=== PATIENT | female | born 1985 | race Caucasian/White ===

== ENCOUNTER 2022-03-26 07:07 | Emergency (ER) | payer BC ==
[2022-03-26] MEDS ORDERED: SODIUM CHLORIDE 1,000 ML IV STA ×2 (07:23→11:26)
[2022-03-26] MEDS ORDERED: ACETAMINOPHEN 1000 MG/100 ML BAG IVPB ONE (07:23)
[2022-03-26] MEDS ORDERED: ONDANSETRON 4 MG/2 ML VIAL IVPUSH ONE ×2 (07:28→11:25)
[2022-03-26 07:46] VITALS: TEMP 97.8; BMI 30.2
[2022-03-26 07:56] LABS: BASO % 0.3 % (0-2.0); EOS % 0.4 % (0-4.5); HEMATOCRIT 34.6 % (32.4-45.2); HEMOGLOBIN 11.5 GM/dL (10.7-15.3); LYMPH % 15.2 % (8-40); MCH 25.4 pg (25.7-33.7); MCHC 33.2 g/dl (32.0-36.0); MEAN CELL VOLUME 76.4 fl (80-96); MEAN PLT VOLUME 8.6 fl (7.5-11.1); MONO % 5.2 % (3.8-10.2); NEUT % 78.9 % (42.8-82.8); PLATELET COUNT 267 10^3/uL (134-434); RBC 4.53 M/mm3 (3.60-5.2); RDW 13.6 % (11.6-15.6); WHITE BLOOD COUNT 13.1 K/mm3 (4.0-10.0)
[2022-03-26 08:09] LABS: CALCIUM 8.5 mg/dL (8.5-10.1)
[2022-03-26 08:10] LABS: ALBUMIN 3.4 g/dl (3.4-5.0); BLOOD UREA NITROGEN 7.7 mg/dL (7-18)
[2022-03-26 08:13] LABS: CREATININE 0.5 mg/dL (0.55-1.3)
[2022-03-26 08:14] LABS: TOT PROT 6.8 g/dl (6.4-8.2)
[2022-03-26 08:15] LABS: BILIRUBIN,TOTAL 0.5 mg/dL (0.2-1)
[2022-03-26 08:35] LABS: PH,URINE >= 9.0 (5.0-8.0); URINE APPEARANCE CLEAR; URINE BILIRUBIN NEGATIVE (NEGATIVE); URINE COLOR YELLOW; URINE GLUCOSE (UA) NEGATIVE (NEGATIVE); URINE KETONE NEGATIVE (NEGATIVE); URINE LEUK ESTERASE NEGATIVE (NEGATIVE); URINE NITRITE NEGATIVE (NEGATIVE); URINE PROTEIN NEGATIVE (NEGATIVE)
[2022-03-26] MEDS ORDERED: FAMOTIDINE 20 MG/50 ML IVPB 20 MG/50 ML MG IVPB ONE (11:25)
[2022-03-26] MEDS ORDERED: ONDANSETRON 4 MG/2 ML VIAL ONE (12:07)
[2022-03-26] MEDS ORDERED: FAMOTIDINE 10 MG/ML VIAL IVPB ONE (12:07)
[2022-03-26] MEDS ORDERED: KETOROLAC TROMETHAMINE 30 MG/1 ML VIAL IVPUSH ONE (13:01)
[2022-03-26] MEDS ORDERED: KETOROLAC TROMETHAMINE 30 MG/1 ML VIAL ONE (13:20)
[2022-03-26 14:31] VITALS: BP 116/80; PULSE 84
== END 2022-03-26 14:31 | disposition home or self-care (01) ==
LOC: JER 07:07
PROC: 3E033GC Introduction of Other Therapeutic Substance into Peripheral Vein, Percutaneous Approach (ICD-10-PCS; principal; 2022-03-26)
DX: R10.30 Lower abdominal pain, unspecified (principal)
CPT/HCPCS: 36415; 74177-TC; 76830-TC; 80053; 81003; 83690; 84703; 85025; 87086; 87491; 87591; 99285-25; Q9967

== ENCOUNTER 2022-03-28 02:33 | Observation (INO) | payer BC ==
[2022-03-28] MEDS ORDERED: ONDANSETRON 4 MG/2 ML VIAL IVPUSH ONE (03:38)
[2022-03-28] MEDS ORDERED: SODIUM CHLORIDE 0.9% 500 ML INFUS.BAG IV ONE (03:39)
[2022-03-28] MEDS ORDERED: ONDANSETRON 4 MG/2 ML VIAL ONE (03:42)
[2022-03-28] MEDS ORDERED: ACETAMINOPHEN 1000 MG/100 ML BAG IVPB ONE (03:58)
[2022-03-28] MEDS ORDERED: ACETAMINOPHEN INJECTION 100 ML IVPB ONE (04:02)
[2022-03-28 04:08] LABS: BASO % 0.2 % (0-2.0); EOS % 0.2 % (0-4.5); HEMATOCRIT 32.3 % (32.4-45.2); HEMOGLOBIN 10.8 GM/dL (10.7-15.3); LYMPH % 6.3 % (8-40); MCH 25.6 pg (25.7-33.7); MCHC 33.4 g/dl (32.0-36.0); MEAN CELL VOLUME 76.6 fl (80-96); MEAN PLT VOLUME 8.2 fl (7.5-11.1); MONO % 4.2 % (3.8-10.2); NEUT % 89.1 % (42.8-82.8); PLATELET COUNT 249 10^3/uL (134-434); RBC 4.22 M/mm3 (3.60-5.2); RDW 13.9 % (11.6-15.6); WHITE BLOOD COUNT 17.2 K/mm3 (4.0-10.0)
[2022-03-28 04:29] LABS: CALCIUM 8.3 mg/dL (8.5-10.1)
[2022-03-28 04:30] LABS: ALBUMIN 2.9 g/dl (3.4-5.0); BLOOD UREA NITROGEN 7.7 mg/dL (7-18)
[2022-03-28 04:33] LABS: CREATININE 0.5 mg/dL (0.55-1.3)
[2022-03-28 04:34] LABS: TOT PROT 6.1 g/dl (6.4-8.2)
[2022-03-28 04:35] LABS: BILIRUBIN,TOTAL 0.5 mg/dL (0.2-1)
[2022-03-28] MEDS: SODIUM CHLORIDE 1,000 ML IV SCH ×2 (09:25→17:47)
[2022-03-28] MEDS: ACETAMINOPHEN 1000 MG/100 ML BAG IVPB PRN ×2 (13:42→21:47)
[2022-03-28 14:12] LABS: PH,URINE 6.5 (5.0-8.0); URINE APPEARANCE CLEAR; URINE BILIRUBIN 1+ (NEGATIVE); URINE COLOR DK YELLOW; URINE GLUCOSE (UA) NEGATIVE (NEGATIVE); URINE KETONE TRACE (NEGATIVE); URINE LEUK ESTERASE NEGATIVE (NEGATIVE); URINE NITRITE NEGATIVE (NEGATIVE); URINE PROTEIN NEGATIVE (NEGATIVE)
[2022-03-28] MEDS: ONDANSETRON 4 MG/2 ML VIAL IVPUSH PRN (16:32)
[2022-03-28 17:46] VITALS: BMI 31.1
[2022-03-29] MEDS: ONDANSETRON 4 MG/2 ML VIAL IVPUSH PRN (01:03)
[2022-03-29] MEDS: SODIUM CHLORIDE 1,000 ML IV SCH ×3 (01:38→17:21)
[2022-03-29] MEDS ORDERED: BISMUTH SUBSALICYLATE 262 MG/15 ML BTL PO ONE ×2 (04:13→17:30)
[2022-03-29] MEDS: ACETAMINOPHEN 1000 MG/100 ML BAG IVPB PRN ×2 (05:47→18:44)
[2022-03-29 08:43] LABS: BASO % 0.1 % (0-2.0); EOS % 1.3 % (0-4.5); HEMATOCRIT 27.8 % (32.4-45.2); HEMOGLOBIN 9.5 GM/dL (10.7-15.3); MCH 25.9 pg (25.7-33.7); MEAN PLT VOLUME 8.6 fl (7.5-11.1); MONO % 10.1 % (3.8-10.2); NEUT % 70.5 % (42.8-82.8); PLATELET COUNT 242 10^3/uL (134-434); RBC 3.65 M/mm3 (3.60-5.2); WHITE BLOOD COUNT 7.9 K/mm3 (4.0-10.0)
[2022-03-29 08:50] LABS: ALBUMIN 2.4 g/dl (3.4-5.0); BLOOD UREA NITROGEN 7.5 mg/dL (7-18); CALCIUM 7.8 mg/dL (8.5-10.1)
[2022-03-29 08:53] LABS: CREATININE 0.3 mg/dL (0.55-1.3); PHOSPHOROUS 2.9 mg/dL (2.5-4.9)
[2022-03-29 08:55] LABS: BILIRUBIN,TOTAL 0.5 mg/dL (0.2-1); TOT PROT 5.3 g/dl (6.4-8.2)
[2022-03-29] MEDS: PROCHLORPERAZINE MALEATE 5 MG TABLET PO PRN (17:20)
[2022-03-29] MEDS: DOXYCYCLINE HYCLATE 100 MG CAPSULE PO SCH (17:20)
[2022-03-29] MEDS ORDERED: ONDANSETRON 4 MG/2 ML VIAL IVPUSH PRN (17:45)
[2022-03-29] MEDS: HEPARIN NA (PORCINE) 5,000 UNITS/ML 1ML VIAL SQ SCH (22:12)
[2022-03-30] MEDS: SODIUM CHLORIDE 1,000 ML IV SCH ×2 (02:35→11:01)
[2022-03-30] MEDS: HEPARIN NA (PORCINE) 5,000 UNITS/ML 1ML VIAL SQ SCH ×3 (05:18→21:26)
[2022-03-30] MEDS: ACETAMINOPHEN 1000 MG/100 ML BAG IVPB PRN ×2 (05:19→13:23)
[2022-03-30 08:39] LABS: BASO % 0.2 % (0-2.0); EOS % 0.5 % (0-4.5); HEMATOCRIT 27.8 % (32.4-45.2); HEMOGLOBIN 9.3 GM/dL (10.7-15.3); LYMPH % 24.4 % (8-40); MCH 25.8 pg (25.7-33.7); MCHC 33.4 g/dl (32.0-36.0); MEAN CELL VOLUME 77.1 fl (80-96); MEAN PLT VOLUME 8.8 fl (7.5-11.1); MONO % 8.8 % (3.8-10.2); NEUT % 66.1 % (42.8-82.8); PLATELET COUNT 268 10^3/uL (134-434); RDW 13.7 % (11.6-15.6); WHITE BLOOD COUNT 8.1 K/mm3 (4.0-10.0)
[2022-03-30 09:04] LABS: ALBUMIN 2.4 g/dl (3.4-5.0); BLOOD UREA NITROGEN 4.4 mg/dL (7-18); CALCIUM 7.7 mg/dL (8.5-10.1); MAGNESIUM 1.9 mg/dL (1.8-2.4)
[2022-03-30 09:07] LABS: CREATININE 0.3 mg/dL (0.55-1.3); PHOSPHOROUS 2.5 mg/dL (2.5-4.9)
[2022-03-30 09:09] LABS: BILIRUBIN,TOTAL 0.3 mg/dL (0.2-1); TOT PROT 5.4 g/dl (6.4-8.2)
[2022-03-30] MEDS ORDERED: ZOLOFT PO SCH (10:00)
[2022-03-30] MEDS ORDERED: WELLBUTRIN PO SCH (10:00)
[2022-03-30] MEDS ORDERED: LISDEXAMFETAMINE DIMESYLATE 70 MG PO SCH (10:00)
[2022-03-30] MEDS: SERTRALINE HCL 50 MG TABLET (FP) PO SCH ×2 (10:55→11:04)
[2022-03-30] MEDS: DOXYCYCLINE HYCLATE 100 MG CAPSULE PO SCH ×2 (10:55→17:48)
[2022-03-30] MEDS: PROCHLORPERAZINE MALEATE 5 MG TABLET PO PRN (11:09)
[2022-03-30] MEDS ORDERED: ACETAMINOPHEN 1000 MG/100 ML BAG IVPB PRN ×2 (13:31→18:25)
[2022-03-30] MEDS ORDERED: DEXTROSE 5%-WATER 100 ML IVPB ONE (20:54)
[2022-03-30] MEDS ORDERED: DOXYCYCLINE HYCLATE 100 MG VIAL ONE (20:54)
[2022-03-30] MEDS ORDERED: INSULIN (LEVEMIR) 100 UNITS/ML UNITS SQ ONE (20:55)
[2022-03-30] MEDS: DOXYCYCLINE INJECTION 100 MG in DEXTROSE 5%-WATER 100 ML IVPB SCH (21:25)
[2022-03-31 01:25] LABS: URINE APPEARANCE CLEAR; URINE BILIRUBIN NEGATIVE (NEGATIVE); URINE COLOR YELLOW; URINE GLUCOSE (UA) NEGATIVE (NEGATIVE); URINE KETONE 2+ (NEGATIVE); URINE LEUK ESTERASE NEGATIVE (NEGATIVE); URINE NITRITE NEGATIVE (NEGATIVE); URINE PROTEIN NEGATIVE (NEGATIVE)
[2022-03-31] MEDS ORDERED: LORazepam 2 MG/ML SDV VIAL IVPUSH ONE (01:35)
[2022-03-31] MEDS: SODIUM CHLORIDE 1,000 ML IV SCH (02:34)
[2022-03-31 05:54] VITALS: PULSE 107
[2022-03-31 07:09] VITALS: BP 130/85; TEMP 98.1
[2022-03-31] MEDS: DOXYCYCLINE INJECTION 100 MG in DEXTROSE 5%-WATER 100 ML IVPB SCH (07:32)
[2022-03-31 08:33] LABS: BASO % 0.2 % (0-2.0); EOS % 0.1 % (0-4.5); HEMATOCRIT 28.2 % (32.4-45.2); HEMOGLOBIN 9.5 GM/dL (10.7-15.3); LYMPH % 13.8 % (8-40); MCH 25.5 pg (25.7-33.7); MCHC 33.6 g/dl (32.0-36.0); MEAN CELL VOLUME 75.7 fl (80-96); MEAN PLT VOLUME 8.2 fl (7.5-11.1); MONO % 6.5 % (3.8-10.2); NEUT % 79.4 % (42.8-82.8); PLATELET COUNT 306 10^3/uL (134-434); RBC 3.72 M/mm3 (3.60-5.2); RDW 13.8 % (11.6-15.6); WHITE BLOOD COUNT 12.2 K/mm3 (4.0-10.0)
[2022-03-31 09:02] LABS: BLOOD UREA NITROGEN 3.2 mg/dL (7-18)
[2022-03-31 09:04] LABS: CALCIUM 8.1 mg/dL (8.5-10.1); CREATININE 0.3 mg/dL (0.55-1.3); PHOSPHOROUS 2.7 mg/dL (2.5-4.9)
[2022-03-31 09:05] LABS: ALBUMIN 2.5 g/dl (3.4-5.0); MAGNESIUM 1.7 mg/dL (1.8-2.4)
[2022-03-31 09:06] LABS: BILIRUBIN,TOTAL 0.6 mg/dL (0.2-1); TOT PROT 5.5 g/dl (6.4-8.2)
[2022-03-31] MEDS: SERTRALINE HCL 50 MG TABLET (FP) PO SCH (10:14)
== END 2022-03-31 13:56 | disposition left against medical advice (07) ==
LOC: JER 02:33 → JERBED 08:25 → J7W 10:09
PROVIDERS: ADMIT Internal Medicine; ATTEND Internal Medicine
PROC: 3E03329 Introduction of Other Anti-infective into Peripheral Vein, Percutaneous Approach (ICD-10-PCS; principal; 2022-03-28)
PROC: 3E033NZ Introduction of Analgesics, Hypnotics, Sedatives into Peripheral Vein, Percutaneous Approach (ICD-10-PCS; 2022-03-28)
PROC: 3E033GC Introduction of Other Therapeutic Substance into Peripheral Vein, Percutaneous Approach (ICD-10-PCS; 2022-03-28)
PROC: 3E0337Z Introduction of Electrolytic and Water Balance Substance into Peripheral Vein, Percutaneous Approach (ICD-10-PCS; 2022-03-28)
DX: K56.609 Unspecified intestinal obstruction, unspecified as to partial versus complete obstruction (principal); N83.201 Unspecified ovarian cyst, right side; R10.31 Right lower quadrant pain; R19.7 Diarrhea, unspecified; K59.00 Constipation, unspecified; Z98.84 Bariatric surgery status; Z87.440 Personal history of urinary (tract) infections; Z90.49 Acquired absence of other specified parts of digestive tract; K80.20 Calculus of gallbladder without cholecystitis without obstruction; F41.8 Other specified anxiety disorders; Z88.8 Allergy status to other drugs, medicaments and biological substances
CPT/HCPCS: 36415; 71045-TC-FY; 74021-TC-FY; 76830-TC; 80053; 81003; 83605; 83735; 84100; 84443; 85025; 85379; 85651; 86140; 86850; 86900; 86901; 87040; 87045; 87046; 87086; 87186; 93005; 93010; 99285-25; C9803-CS; G0378; U0003; U0005